=== PATIENT | male | born 1955 | race Caucasian/White ===

== ENCOUNTER 2017-12-15 06:05 | Observation (INO) | payer OTHER ==
[2017-12-14 16:09] VITALS: BP 140/67
[2017-12-14 16:12] LABS: HEMATOCRIT 40.3 % (42-54); MEAN CORPUSCULAR HEMOGLOBIN 31.2 pg (27.0-33.0); MEAN CORPUSCULAR HGB CONC 34.2 g/dL (32.0-36.0); MEAN CORPUSCULAR VOLUME 91.2 fL (79-99); PLATELET COUNT (AUTO) 224 K/uL (130-400); RED BLOOD CELL COUNT(AUTO) 4.42 MIL/uL (4.50-6.20); RED CELL DISTRIBUTION WIDTH 13.8 % (11.0-15.5); WHITE BLOOD COUNT (AUTO) 7.9 K/uL (4.8-10.8)
[2017-12-14 16:24] LABS: CREATININE 1.3 mg/dL (0.5-1.5); INR 0.9 (0.85-1.15); PARTIAL THROMBOPLASTIN TIME 26.7 SEC (26.3-35.5); POTASSIUM 5.5 mmol/L (3.5-5.1); PROTHROMBIN TIME 9.5 SEC (9.6-11.6)
[2017-12-14 16:47] LABS: APPEARANCE,URINE Clear (CLEAR); BILIRUBIN,URINE Negative (NEGATIVE); COLOR,URINE Yellow (YELLOW); GLUCOSE, URINE (UA) 500 mg/dL (NEGATIVE); KETONES,URINE Trace mg/dL (NEGATIVE); LEUKOCYTE ESTERASE ,URINE Trace (NEGATIVE); NITRATE,URINE Negative (NEGATIVE); OCCULT BLOOD,URINE Nonhemolyzed Trace (NEGATIVE); PROTEIN,URINE Negative (NEGATIVE)
[2017-12-14 17:14] LABS: BACTERIA,URINE Few /HPF (None Seen); MUCUS,URINE Few LPF (None Seen); SQUAMOUS EPITHELIAL CELL,UR 0-2 /HPF (0-2); WBC,URINE 0-1 /HPF (0-1)
[~2017-12-15] VITALS: Ht 181.6 cm; Wt 109.8 kg
[2017-12-15] VITALS (23 sets, daily range): BP systolic 100–179; BP diastolic 20–90
[~2017-12-15 06:05] MED LIST: CLON1TAB12 PO; INSREG SQ; LACTATED RINGERS 1000ML 1,000 ML IV PRN; METF-446 PO
[2017-12-15] MEDS ORDERED: SODIUM CHLORIDE 0.9% 1000ML 1,000 ML IV ONE (06:53)
[2017-12-15] MEDS: CEFAZOLIN SODIUM 1 GM VIAL IVP PRN ×2 (07:34→12:30)
[2017-12-15] MEDS ORDERED: FERR325T22 PO (10:20)
[2017-12-15] MEDS ORDERED: METF-446 PO (10:20)
[2017-12-15] MEDS ORDERED: CYAN50TA2 PO (10:20)
[2017-12-15] MEDS ORDERED: ATOR20TA65 PO (10:20)
[2017-12-15] MEDS ORDERED: PROPRANOLOL HCL PO (10:20)
[2017-12-15] MEDS ORDERED: INSLAN SQ (10:20)
[2017-12-15] MEDS ORDERED: CLOP75TA32 PO (10:20)
[2017-12-15] MEDS ORDERED: TAMS0.4C32 PO (10:20)
[2017-12-15] MEDS ORDERED: AMLO5TAB7 PO (10:20)
[2017-12-15] MEDS ORDERED: SERT50TA12 PO (10:20)
[2017-12-15] MEDS ORDERED: LISI10TA7 PO (10:20)
[2017-12-15] MEDS ORDERED: LIDOCAINE PF 2% 5ML ABBOJECT ONE (10:40)
[2017-12-15] MEDS ORDERED: MIDAZOLAM HCL 1 MG/ML 2ML VIAL ONE (10:41)
[2017-12-15] MEDS ORDERED: PROPOFOL 10 MG/ML 20ML VIAL IV ONE ×2 (10:42→11:42)
[2017-12-15] MEDS ORDERED: ROCURONIUM 10MG/1ML SYR 10 MG/ML ML ONE ×2 (10:42→12:21)
[2017-12-15] MEDS ORDERED: FENTANYL CITRATE PF 50 MCG/1 ML 2ML VIAL ONE ×2 (10:50→12:18)
[2017-12-15] MEDS ORDERED: IPRATROPIUM/ALBUTEROL SULFATE 3 ML SOLUTION IH ONE (13:36)
[2017-12-15] MEDS ORDERED: LACTATED RINGERS 1000ML 1,000 ML IV ONE (15:36)
[2017-12-15] MEDS ORDERED: CLON2TAB11 PO (16:09)
[2017-12-15] MEDS ORDERED: DEXTROSE 50%-WATER 50 ML DISP.SYRIN IV PRN (17:45)
[2017-12-15] MEDS ORDERED: GLUCAGON 1MG KIT 1 MG ML IM PRN (17:45)
[2017-12-15] MEDS ORDERED: ACETAMINOPHEN-CODEINE 300/30MG TAB PO PRN (18:00)
[2017-12-15] MEDS ORDERED: OXYBUTYNIN CHLORIDE 5 MG TABLET PO PRN (18:00)
[2017-12-15] MEDS ORDERED: ONDANSETRON HCL 4 MG/2 ML VIAL IVP PRN (18:00)
[2017-12-15] MEDS ORDERED: MEPERIDINE-PF 75 MG/ML SYG IM PRN (18:00)
[2017-12-15] MEDS ORDERED: ACETAMINOPHEN 325 MG TAB PO PRN (18:00)
[2017-12-15] MEDS: LACTATED RINGERS 1000ML 1,000 ML IV SCH (18:26)
[2017-12-15] MEDS: CEFAZOLIN SODIUM 1 GM VIAL IVP SCH (18:26)
[2017-12-15] MEDS ORDERED: CLOPIDOGREL BISULFATE 75 MG TAB PO SCH (21:00)
[2017-12-15] MEDS ORDERED: ATORVASTATIN CALCIUM 20 MG TABLET PO SCH (21:00)
[2017-12-15] MEDS: CLONAZEPAM 2 MG TABLET PO SCH (21:19)
[2017-12-15] MEDS: AMLODIPINE BESYLATE 5 MG TAB PO SCH (21:19)
[2017-12-15] MEDS: METFORMIN HCL 500 MG TABLET PO SCH (21:19)
[2017-12-15] MEDS ORDERED: PROP120C2 PO (21:23)
[2017-12-15] MEDS: INSULIN GLARGINE 100 UNITS/ML 10 ML VIAL SQ SCH (21:26)
[2017-12-15] MEDS: INSULIN HUMULIN R 100 UNIT/ML 3ML SQ SCH (21:27)
[2017-12-16] MEDS: CEFAZOLIN SODIUM 1 GM VIAL IVP SCH ×3 (02:19→18:00)
[2017-12-16 03:28] VITALS: BP 179/72
[2017-12-16] MEDS: LACTATED RINGERS 1000ML 1,000 ML IV SCH (03:29)
[2017-12-16 04:54] LABS: HEMATOCRIT 38.2 % (42-54); MEAN CORPUSCULAR HEMOGLOBIN 31.7 pg (27.0-33.0); MEAN CORPUSCULAR HGB CONC 34.9 g/dL (32.0-36.0); MEAN CORPUSCULAR VOLUME 90.8 fL (79-99); PLATELET COUNT (AUTO) 209 K/uL (130-400); RED BLOOD CELL COUNT(AUTO) 4.21 MIL/uL (4.50-6.20); RED CELL DISTRIBUTION WIDTH 14.2 % (11.0-15.5); WHITE BLOOD COUNT (AUTO) 9.5 K/uL (4.8-10.8)
[2017-12-16 05:03] LABS: CREATININE 1.2 mg/dL (0.5-1.5); POTASSIUM 4.6 mmol/L (3.5-5.1)
[2017-12-16] MEDS: INSULIN HUMULIN R 100 UNIT/ML 3ML SQ SCH ×3 (06:32→16:30)
[2017-12-16 08:00] VITALS: BP 148/69
[2017-12-16] MEDS ORDERED: FERROUS SULFATE 325 MG TABLET.DR PO SCH (09:00)
[2017-12-16] MEDS ORDERED: LISINOPRIL 10 MG TABLET PO SCH (09:00)
[2017-12-16] MEDS ORDERED: PROPRANOLOL HCL 120 MG PO SCH (09:00)
[2017-12-16] MEDS ORDERED: TAMSULOSIN HCL 0.4 MG CAP.ER.24H PO SCH (09:00)
[2017-12-16] MEDS ORDERED: SERTRALINE HCL 50 MG TABLET PO SCH (09:00)
[2017-12-16] MEDS: METFORMIN HCL 500 MG TABLET PO SCH (10:31)
[2017-12-16] MEDS: AMLODIPINE BESYLATE 5 MG TAB PO SCH (10:31)
[2017-12-16] MEDS: CLONAZEPAM 2 MG TABLET PO SCH (10:31)
[2017-12-16] MEDS: INSULIN GLARGINE 100 UNITS/ML 10 ML VIAL SQ SCH (10:49)
[2017-12-16 11:00] VITALS: BP 159/81
[2017-12-16 16:00] VITALS: BP 146/76
== END 2017-12-16 19:16 | disposition home or self-care (01) ==
LOC: SUH 06:05 → DAH 06:05 → SUH 06:06 → 4CH 06:06
PROVIDERS: ADMIT Urology; ATTEND Urology
DX: N32.89 Other specified disorders of bladder (principal); E11.9 Type 2 diabetes mellitus without complications; E78.5 Hyperlipidemia, unspecified
CPT/HCPCS: 36415 ×2; 50955; 71046; 80048 ×2; 81001; 82948 ×8; 85027 ×2; 85610; 85730; 87088; 88305; 93005; 94640; 96372 ×2; 96374; 96376; A4354; A4358; A4600; A5113; C1758; C1769 ×2; G0378 ×37; J0690 ×5; J1815 ×3; J2001; J2250; J2704 ×2; J3010 ×2; J7030; J7120 ×2

== ENCOUNTER 2019-05-25 15:06 | Inpatient (IN) | payer OTHER ==
[~2019-05-25] VITALS: Ht 180.3 cm; Wt 114.3 kg
[~2019-05-25 15:06] MED LIST changes: +AMLO-257 PO; +ATOR20TA65 PO; -CLON1TAB12 PO; +CLON2TAB11 PO; +CLOP75TA32 PO; +CYAN50TA2 PO; +ETOMIDATE 2 MG/ML 10 ML VIAL IVP ONE; +FERR325T22 PO; +INSLAN SQ; -LACTATED RINGERS 1000ML 1,000 ML IV PRN; +LISI10TA7 PO; +PROP120C2 PO; +PROPRANOLOL HCL PO; +SERT50TA12 PO; +SUCCINYLCHOLINE CHLORIDE 20 MG/ML 10 ML VIAL IVP ONE; +TAMS0.4C32 PO
[2019-05-25] MEDS ORDERED: ACETAMINOPHEN EXTRA STRENGTH 500 MG TABLET ONE (15:23)
[2019-05-25 15:48] LABS: BASOPHILS % (AUTO) 0.3 % (0.0-5.0); EOSINOPHILS % (AUTO) 0.7 % (0.0-8.0); HEMATOCRIT 31.8 % (42-54); LYMPHOCYTES % (AUTO) 5.4 % (21.0-51.0); MEAN CORPUSCULAR HEMOGLOBIN 28.6 pg (27.0-33.0); MEAN CORPUSCULAR HGB CONC 32.7 g/dL (32.0-36.0); MEAN CORPUSCULAR VOLUME 87.4 fL (79-99); MONOCYTES % (AUTO) 7.5 % (3.0-13.0); NEUTROPHILS % (AUTO) 85.5 % (40.0-77.0); PLATELET COUNT (AUTO) 232 K/uL (130-400); RED BLOOD CELL COUNT(AUTO) 3.64 MIL/uL (4.50-6.20); RED CELL DISTRIBUTION WIDTH 13.7 % (11.0-15.5); WHITE BLOOD COUNT (AUTO) 15.5 K/uL (4.8-10.8)
[2019-05-25 16:04] LABS: CREATININE 1.8 mg/dL (0.5-1.5); POTASSIUM 4.9 mmol/L (3.5-5.1)
[2019-05-25] MEDS ORDERED: ZOSYN 3.375GM+NS 50ML 50 ML IV ONE (16:46)
[2019-05-25] MEDS ORDERED: VANCOMYCIN 2 GM in SODIUM CHLORIDE 0.9% 500ML 500 ML IV ONE (17:00)
[2019-05-25] MEDS ORDERED: VANCOMYCIN PROTOCOL PER PHARMACY IV SCH (17:30)
[2019-05-25] MEDS ORDERED: SODIUM CHLORIDE 0.9% 1000ML 1,000 ML IV SCH (17:32)
[2019-05-25] MEDS ORDERED: NITROGLYCERIN 0.4 MG SL TAB SL PRN (17:45)
[2019-05-25] MEDS ORDERED: LACTULOSE 20 GM/30 ML UDCUP PO PRN (17:45)
[2019-05-25] MEDS ORDERED: ONDANSETRON HCL 4 MG/2 ML VIAL IV PRN (17:45)
[2019-05-25] MEDS ORDERED: ALBUTEROL SULFATE 0.042% 1.25 MG/3 ML INH IH SCH (18:00)
[2019-05-25] MEDS ORDERED: CEFEPIME HCL 1 GM VIAL IVP SCH (18:30)
[2019-05-25 18:48] LABS: ABG BASE EXCESS -5.6 mmol/L (-2.0-3.0); ABG OXYGEN SATURATION 98.5 % (95.0-99.0); ABG PCO2 40 mmHg (35-48)
[2019-05-25] MEDS ORDERED: ALBUTEROL INHALER 90MCG/INH IH ONE (18:49)
[2019-05-25 20:46] LABS: ALBUMIN 2.3 g/dL (3.5-5.0); BILIRUBIN,DIRECT 0.1 mg/dL (0.0-0.3); BILIRUBIN,TOTAL 0.4 mg/dL (0.2-1.0); TOTAL PROTEIN, SERUM 7.1 g/dL (6.0-8.3)
[2019-05-25] MEDS: INSULIN HUMULIN R 100 UNIT/ML 3ML SQ SCH (21:00)
[2019-05-25 21:12] LABS: MAGNESIUM 2.2 mg/dL (1.80-2.40); PHOSPHORUS 3.5 mg/dL (2.5-4.9)
[2019-05-25] MEDS ORDERED: FUROSEMIDE 10 MG/ML 4ML VIAL ONE (21:50)
[2019-05-25] MEDS ORDERED: CEFEPIME HCL 1 GM VIAL ONE (21:50)
[2019-05-25] MEDS: CEFEPIME HCL 1 GM VIAL IVP SCH (22:00)
[2019-05-25 22:21] LABS: APPEARANCE,URINE CLOUDY (CLEAR); BILIRUBIN,URINE NEGATIVE (NEGATIVE); COLOR,URINE YELLOW (YELLOW); GLUCOSE, URINE (UA) NEGATIVE (NEGATIVE); KETONES,URINE NEGATIVE (NEGATIVE); LEUKOCYTE ESTERASE ,URINE MODERATE (NEGATIVE); NITRATE,URINE NEGATIVE (NEGATIVE); OCCULT BLOOD,URINE MODERATE (NEGATIVE); PH,URINE 5.5 (5.0-8.0); PROTEIN,URINE 30 mg/dL (NEGATIVE); UROBILINOGEN,URINE 0.2 mg/dL (0.2-1.0)
[2019-05-25 22:32] LABS: BACTERIA,URINE Few /HPF (None Seen); SQUAMOUS EPITHELIAL CELL,UR Rare /HPF (0-2); WBC,URINE 51-100 /HPF (0-1)
[2019-05-26 00:39] VITALS: BP 112/65
[2019-05-26] MEDS: ALBUTEROL INHALER 90MCG/INH IH SCH ×2 (02:00→06:00)
[2019-05-26 03:36] LABS: ABG HCO3 18.8 mmol/L (21.0-28.0); ABG OXYGEN SATURATION 94.2 % (95.0-99.0); ABG PCO2 35 mmHg (35-48)
[2019-05-26 03:56] VITALS: BP 125/56
[2019-05-26 04:57] LABS: BASOPHILS % (AUTO) 0.5 % (0.0-5.0); HEMATOCRIT 30.6 % (42-54); LYMPHOCYTES % (AUTO) 7.9 % (21.0-51.0); MEAN CORPUSCULAR HEMOGLOBIN 28.6 pg (27.0-33.0); MEAN CORPUSCULAR VOLUME 89.2 fL (79-99); MONOCYTES % (AUTO) 7.3 % (3.0-13.0); NEUTROPHILS % (AUTO) 81.8 % (40.0-77.0); PLATELET COUNT (AUTO) 214 K/uL (130-400); RED BLOOD CELL COUNT(AUTO) 3.43 MIL/uL (4.50-6.20); RED CELL DISTRIBUTION WIDTH 13.7 % (11.0-15.5); WHITE BLOOD COUNT (AUTO) 11.5 K/uL (4.8-10.8)
[2019-05-26 05:30] LABS: ALBUMIN 2.3 g/dL (3.5-5.0); BILIRUBIN,TOTAL 0.5 mg/dL (0.2-1.0); CREATININE 1.9 mg/dL (0.5-1.5); POTASSIUM 4.5 mmol/L (3.5-5.1); TOTAL PROTEIN, SERUM 7.2 g/dL (6.0-8.3)
[2019-05-26 05:35] LABS: HEMOGLOBIN A1C 6.5 % (4.0-6.0)
[2019-05-26 05:43] LABS: B-TYPE NATRIURETIC PEPTIDE 111 pg/mL (0-100)
[2019-05-26] MEDS: INSULIN HUMULIN R 100 UNIT/ML 3ML SQ SCH ×4 (05:57→20:02)
[2019-05-26 06:08] LABS: CRP QUANTITATIVE 183.2 mg/L (0.00-9.0)
[2019-05-26] MEDS: CEFEPIME HCL 1 GM VIAL IVP SCH ×3 (06:17→19:35)
[2019-05-26 07:00] VITALS: BP 121/55
[2019-05-26] MEDS: FAMOTIDINE 20MG TAB 20 MG TAB PO SCH (08:09)
[2019-05-26] MEDS: ENOXAPARIN SODIUM 30 MG/0.3 ML SQ SCH (08:10)
[2019-05-26] MEDS ORDERED: VANCOMYCIN 1.5 GM in SODIUM CHLORIDE 0.9% 250 ML IV SCH ×2 (09:00→11:00)
--- NOTE | 2019-05-26 10:57 | NUR ---
GLUCOSE AC/HS, GLUCOSE 287.
[2019-05-26 11:00] VITALS: BP 161/68
[2019-05-26] MEDS ORDERED: COMPOUND IV REFRIGERATED 1 EACH IVSOLN MISC PRN (11:45)
--- NOTE | 2019-05-26 12:00 | NUR ---
PODIATRY CONSULT DR HORTA NOTIFIED OF CONSULT. CONSULT INFO GIVEN. NEW ORDERS RECEIVED & ENTERED.
[2019-05-26] MEDS ORDERED: TAMSULOSIN HCL 0.4 MG CAP.ER.24H PO SCH (14:30)
[2019-05-26] MEDS ORDERED: TAMSULOSIN HCL 0.4 MG CAP.ER.24H ONE (14:37)
[2019-05-26 15:00] VITALS: BP 148/74
[2019-05-26] MEDS ORDERED: ALOG25TA2 PO (15:33)
[2019-05-26] MEDS ORDERED: LISI-613 PO (15:33)
--- NOTE | 2019-05-26 16:21 | NUR ---
PULMONOLOGY CONSULT DR REED TO SEE PT. PT CURRENTLY HAVING MRI OF LT FOOT. PT TO BE SEEN TOMORROW, PER DR REED.
--- NOTE | 2019-05-26 16:43 | NUR ---
SW attempted to reach pt to complete IA, no answer in room. PARI called Katie Clark [phone], listed on face sheet, no answer, no voice mail. Cm to f/u
--- NOTE | 2019-05-26 17:22 | NUR ---
MD VISIT PT BACK FROM MRI OF LT FOOT. DR REED IN TO SEE PT.
[2019-05-26 19:10] VITALS: BP 141/60
[2019-05-26] MEDS ORDERED: LORAZEPAM 2 MG/ML 1 ML VIAL ONE (22:22)
[2019-05-26] MEDS ORDERED: FUROSEMIDE 10 MG/ML 4ML VIAL ONE (22:30)
[2019-05-26] MEDS ORDERED: LORAZEPAM 2 MG/ML 1 ML VIAL IVP ONE (22:30)
[2019-05-26] MEDS: FUROSEMIDE 10 MG/ML 4ML VIAL IV SCH (22:45)
[2019-05-26 22:49] LABS: ABG BASE EXCESS -7.2 mmol/L (-2.0-3.0); ABG HCO3 20.8 mmol/L (21.0-28.0); ABG OXYGEN SATURATION 91.7 % (95.0-99.0); ABG PCO2 53 mmHg (35-48)
--- NOTE | 2019-05-26 23:06 | NUR ---
respiratory distress patient continued to pull off non-rbr current sat 80s gowned up multiple times to reapply mask and patient oxygen sat would recover up to 93% this last time, patient did not recover, was diaphoretic and reported "sob", lethargic exaggerated abdominal breathing from baseline rt called patient placed on bipap aj palliative senior np paged and at bedside orders for iv lasix x1 and iv ativan x [address] jeet felix - DRE-[facility]UN[facility] spoke with dr marcano and updated him on patient status dr jeet felix and given results of abg ordered to continue to monitor patient saturation throughout the night
[2019-05-26 23:20] LABS: CREATININE 1.6 mg/dL (0.5-1.5)
[2019-05-27] VITALS (18 sets, daily range): BP systolic 97–219; BP diastolic 38–118
[2019-05-27] MEDS ORDERED: IPRATROPIUM 0.5 MG/2.5 ML INH IH SCH
[2019-05-27] MEDS: ACETAMINOPHEN 325 MG TAB PO PRN ×2 (01:21→15:44)
[2019-05-27 04:31] LABS: ABG BASE EXCESS -3.8 mmol/L (-2.0-3.0); ABG HCO3 22.2 mmol/L (21.0-28.0); ABG PCO2 44 mmHg (35-48)
[2019-05-27 05:03] LABS: BASOPHILS % (AUTO) 0.5 % (0.0-5.0); EOSINOPHILS % (AUTO) 0.8 % (0.0-8.0); HEMATOCRIT 32.7 % (42-54); LYMPHOCYTES % (AUTO) 7.3 % (21.0-51.0); MEAN CORPUSCULAR HEMOGLOBIN 28.1 pg (27.0-33.0); MEAN CORPUSCULAR HGB CONC 31.2 g/dL (32.0-36.0); MEAN CORPUSCULAR VOLUME 90.1 fL (79-99); MONOCYTES % (AUTO) 6.8 % (3.0-13.0); NEUTROPHILS % (AUTO) 83.8 % (40.0-77.0); PLATELET COUNT (AUTO) 289 K/uL (130-400); RED BLOOD CELL COUNT(AUTO) 3.63 MIL/uL (4.50-6.20); RED CELL DISTRIBUTION WIDTH 13.8 % (11.0-15.5); WHITE BLOOD COUNT (AUTO) 11.8 K/uL (4.8-10.8)
[2019-05-27 05:22] LABS: ALBUMIN 2.4 g/dL (3.5-5.0); BILIRUBIN,TOTAL 0.5 mg/dL (0.2-1.0); CREATININE 1.7 mg/dL (0.5-1.5); MAGNESIUM 1.8 mg/dL (1.80-2.40); PHOSPHORUS 4.3 mg/dL (2.5-4.9); POTASSIUM 4.4 mmol/L (3.5-5.1); TOTAL PROTEIN, SERUM 7.8 g/dL (6.0-8.3)
[2019-05-27 05:43] LABS: CRP QUANTITATIVE 233.9 mg/L (0.00-9.0)
[2019-05-27] MEDS ORDERED: BUDESONIDE 0.5 MG/2 ML INH IH SCH (06:00)
[2019-05-27] MEDS: CEFEPIME HCL 1 GM VIAL IVP SCH ×3 (06:45→22:18)
[2019-05-27] MEDS: INSULIN HUMULIN R 100 UNIT/ML 3ML SQ SCH ×4 (06:46→23:33)
[2019-05-27 07:26] LABS: ERYTHROCYTE SEDIMENTATION RATE 120 MM/HR (0-20)
[2019-05-27] MEDS: FAMOTIDINE 20MG TAB 20 MG TAB PO SCH (08:23)
[2019-05-27] MEDS: ENOXAPARIN SODIUM 30 MG/0.3 ML SQ SCH (08:23)
[2019-05-27] MEDS: VANCOMYCIN 1GM+NS 250ML 250 ML IV SCH ×2 (10:40→20:14)
--- NOTE | 2019-05-27 13:56 | NUR ---
DC PLAN PATIENT IN [facility]. CALLED PERSON TO NOTIFY AVE - PATIENT LIVES WITH ALONE. PROVIDER 33 1/2 HOURS. USES A WHEEL CHAIR. SAID WILL HAND RIGGER PATIENT WHEN PATIENT IS READY TO DC HOME. Addendum: 05/27/19 at 1359 by SANDY GONZALES RN CM Amended: Links added.
[2019-05-27] MEDS: TAMSULOSIN HCL 0.4 MG CAP.ER.24H PO SCH (20:14)
[2019-05-27] MEDS: Vitamin B Complex/Vit C/Folic Acid PO SCH (20:14)
--- NOTE | 2019-05-27 20:30 | NUR ---
Intubation Change in status: observed Patient in respiratory distress, diaphoretic, tachypneic, gasping for air, abdominal grunting patient was non rebreather oxygen saturations on 70-80's, Heart rate in 120's. Hospitalist and Critical care made aware via telephone and recommended intubation. Patient intubated by ER physician at 2100 hrs, patient stable, improved breathing, ventilated O2 saturations 94%, FIO2 100%, BP 132/50, HR 86, RR 22. Carried out new orders received by critical care and hospitalist.
[2019-05-27] MEDS ORDERED: LABETALOL HCL 5 MG/ML 20ML VIAL IV ONE (20:59)
[2019-05-27] MEDS ORDERED: PROPOFOL 1000 MG/100 ML 100 ML IV ONE (21:08)
[2019-05-27] MEDS ORDERED: MIDAZOLAM HCL 1 MG/ML 2ML VIAL ONE (21:11)
[2019-05-27] MEDS ORDERED: FENTANYL CITRATE PF 50 MCG/1 ML 5ML AMP IV ONE (21:12)
[2019-05-27 21:29] LABS: ABG BASE EXCESS -3.8 mmol/L (-2.0-3.0); ABG HCO3 22.4 mmol/L (21.0-28.0); ABG OXYGEN SATURATION 91.8 % (95.0-99.0); ABG PCO2 45 mmHg (35-48)
[2019-05-27] MEDS ORDERED: FENTANYL 1000MCG+NS 100ML 100 ML ONE (21:38)
[2019-05-27] MEDS: ALBUTEROL INHALER 90MCG/INH IH SCH ×3 (22:00→23:33)
[2019-05-27] MEDS ORDERED: FENTANYL CITRATE PF 50 MCG/1 ML 2ML VIAL IVP ONE (22:15)
[2019-05-27] MEDS: ETOMIDATE 2 MG/ML 10 ML VIAL IVP SCH (22:15)
[2019-05-27] MEDS ORDERED: MIDAZOLAM HCL 1 MG/ML 5ML VIAL IVP ONE (22:15)
[2019-05-27] MEDS ORDERED: FENTANYL CITRATE PF 0.05 MG/ML 1,000 MCG in SODIUM CHLORIDE 0.9% 100 ML IVPB SCH (22:15)
[2019-05-27] MEDS: SUCCINYLCHOLINE 200MG/10ML SYR IVP SCH (22:15)
[2019-05-27] MEDS: LABETALOL HCL 5 MG/ML 20ML VIAL IV SCH (22:15)
[2019-05-27] MEDS ORDERED: PROPOFOL 1000 MG/100 ML IV PRN (22:15)
[2019-05-27] MEDS ORDERED: FUROSEMIDE 10 MG/ML 2ML VIAL IV SCH (22:30)
[2019-05-27] MEDS: FUROSEMIDE 10 MG/ML 4ML VIAL IV SCH (22:45)
[2019-05-28] VITALS (41 sets, daily range): BP systolic 90–144; BP diastolic 27–74
[2019-05-28] MEDS: NOREPINEPHRINE 4MG/NS 250ML 250 ML IV SCH (01:52)
[2019-05-28] MEDS: PROPOFOL 1000 MG/100 ML 100 ML IV SCH ×4 (01:52→21:00)
[2019-05-28] MEDS: CEFEPIME HCL 1 GM VIAL IVP SCH ×3 (06:03→21:02)
[2019-05-28 06:16] LABS: HEMATOCRIT 30.9 % (42-54); MEAN CORPUSCULAR HEMOGLOBIN 28.5 pg (27.0-33.0); MEAN CORPUSCULAR HGB CONC 31.7 g/dL (32.0-36.0); MEAN CORPUSCULAR VOLUME 89.8 fL (79-99); PLATELET COUNT (AUTO) 269 K/uL (130-400); RED BLOOD CELL COUNT(AUTO) 3.44 MIL/uL (4.50-6.20); RED CELL DISTRIBUTION WIDTH 13.8 % (11.0-15.5); WHITE BLOOD COUNT (AUTO) 11.7 K/uL (4.8-10.8)
[2019-05-28 06:42] LABS: ALBUMIN 2.1 g/dL (3.5-5.0); BILIRUBIN,TOTAL 0.5 mg/dL (0.2-1.0); CREATININE 1.6 mg/dL (0.5-1.5); MAGNESIUM 1.6 mg/dL (1.80-2.40); PHOSPHORUS 3.4 mg/dL (2.5-4.9); POTASSIUM 4.2 mmol/L (3.5-5.1); THYROID STIMULATING HORMONE 0.33 uIU/mL (0.36-3.74); TOTAL PROTEIN, SERUM 7.3 g/dL (6.0-8.3); URIC ACID 7.8 mg/dL (2.6-7.2)
[2019-05-28] MEDS: INSULIN HUMULIN R 100 UNIT/ML 3ML SQ SCH ×3 (06:47→17:44)
[2019-05-28] MEDS: VANCOMYCIN 1GM+NS 250ML 250 ML IV SCH ×2 (07:49→21:00)
[2019-05-28] MEDS: ENOXAPARIN SODIUM 30 MG/0.3 ML SQ SCH (07:50)
[2019-05-28] MEDS: FAMOTIDINE 20MG TAB 20 MG TAB PO SCH (07:50)
[2019-05-28 07:51] LABS: EOSINOPHILS % (MANUAL) 1 % (1-6); LYMPHOCYTES % (MANUAL) 7 % (22-44); MONOCYTES % (MANUAL) 5 % (2-9); SEGMENTED NEUTROPHILS % 87 % (40-70)
[2019-05-28 07:53] LABS: MAN.DIFF COMMENT-IMPRESSION MANUAL DIFFERENTIAL; PLATELET MORPHOLOGY COMMENT ADEQUATE
[2019-05-28] MEDS ORDERED: APAP/CODEINE 120/12MG 5ML PO PRN (08:00)
[2019-05-28] MEDS: HYDROCODONE/ACETAMINOPHEN 5/325 MG TAB PO PRN (09:15)
[2019-05-28] MEDS ORDERED: MAGNESIUM 2GM PREMIX 50ML 50 ML IV ONE (09:54)
[2019-05-28] MEDS ORDERED: MAGNESIUM 2GM PREMIX 50ML 50 ML IV PRN (10:00)
[2019-05-28] MEDS ORDERED: FENTANYL 1000MCG+NS 100ML 100 ML ONE (11:41)
--- NOTE | 2019-05-28 20:00 | NUR ---
ASSESSMENT PT INTUBATED AND SEDATED, OPENS EYES WITH VERBAL STIMULI, NODS HEAD YES/NO TO SIMPLE QUESTIONS. ASSESSMENT COMPLETED, SEE FLOW SHEET.
[2019-05-28] MEDS: Vitamin B Complex/Vit C/Folic Acid PO SCH (20:57)
[2019-05-28] MEDS: ACETAMINOPHEN 325 MG TAB PO PRN (20:59)
[2019-05-28] MEDS: TAMSULOSIN HCL 0.4 MG CAP.ER.24H PO SCH (21:00)
[2019-05-28] MEDS: LABETALOL HCL 5 MG/ML 20ML VIAL IV SCH (22:15)
[2019-05-28] MEDS: ETOMIDATE 2 MG/ML 10 ML VIAL IVP SCH (22:15)
[2019-05-28] MEDS: SUCCINYLCHOLINE 200MG/10ML SYR IVP SCH (22:15)
[2019-05-28] MEDS: FUROSEMIDE 10 MG/ML 4ML VIAL IV SCH (22:45)
[2019-05-29] VITALS (30 sets, daily range): BP systolic 107–164; BP diastolic 30–79
[2019-05-29] MEDS: INSULIN HUMULIN R 100 UNIT/ML 3ML SQ SCH ×4 (00:34→21:01)
[2019-05-29] MEDS: PROPOFOL 1000 MG/100 ML 100 ML IV SCH ×4 (01:04→23:00)
[2019-05-29] MEDS ORDERED: ETOMIDATE 2 MG/ML 10 ML VIAL IVP SCH (01:30)
--- NOTE | 2019-05-29 02:00 | NUR ---
SELF-EXTUBATION/RE-INTUBATION PT SELF EXTUBATED AT APPROXIMATELY 0115. RESP CALLED. DR REED CALLED AND MADE AWARE PT SELF-EXTUBATED, RECEIVED ORDERS TO HAVE E.D. M.D RE-INTUBATE PT. ANTONIO BALLESTEROS CALLED AT APPROXIMATED 0122. DR LOW HERE PT RE-INTUBATED ON FIRST ATTEMPT. ETT 8 SECURED. VENT SETTINGS: AC/12/100%/550 PEEP 7. OGT ALSO REMOVED WHEN PT SELF EXTUBATED. PCXR CONFIRMED ETT PLACEMENT, BILATERAL MITTENS IN PLACE. PT SEDATED.
--- NOTE | 2019-05-29 02:53 | NUR ---
Patient self extubated himself Sat.70% at arrival Uma Holder was called Dr. Bustamante reintubated at first attempt. Addendum: 05/29/19 at 0259 by COSTA PATTON RT Amended: Links added.
[2019-05-29 05:04] LABS: BASOPHILS % (AUTO) 0.4 % (0.0-5.0); EOSINOPHILS % (AUTO) 2.6 % (0.0-8.0); HEMATOCRIT 31.1 % (42-54); LYMPHOCYTES % (AUTO) 8.8 % (21.0-51.0); MEAN CORPUSCULAR HGB CONC 31.8 g/dL (32.0-36.0); MEAN CORPUSCULAR VOLUME 88.1 fL (79-99); MONOCYTES % (AUTO) 7.4 % (3.0-13.0); NEUTROPHILS % (AUTO) 80.1 % (40.0-77.0); PLATELET COUNT (AUTO) 295 K/uL (130-400); RED BLOOD CELL COUNT(AUTO) 3.53 MIL/uL (4.50-6.20); RED CELL DISTRIBUTION WIDTH 13.7 % (11.0-15.5); WHITE BLOOD COUNT (AUTO) 12.1 K/uL (4.8-10.8)
[2019-05-29 05:15] LABS: CREATININE 1.3 mg/dL (0.5-1.5); MAGNESIUM 1.9 mg/dL (1.80-2.40); POTASSIUM 3.8 mmol/L (3.5-5.1)
[2019-05-29] MEDS: CEFEPIME HCL 1 GM VIAL IVP SCH ×3 (05:53→22:59)
[2019-05-29] MEDS: NOREPINEPHRINE 4MG/NS 250ML 250 ML IV SCH (06:54)
[2019-05-29] MEDS ORDERED: FENTANYL 1000MCG+NS 100ML 100 ML ONE ×2 (10:04→15:09)
[2019-05-29] MEDS: VANCOMYCIN 1GM+NS 250ML 250 ML IV SCH (10:16)
[2019-05-29] MEDS: FAMOTIDINE 20MG TAB 20 MG TAB PO SCH (10:16)
[2019-05-29] MEDS: ENOXAPARIN SODIUM 30 MG/0.3 ML SQ SCH (10:17)
[2019-05-29] MEDS ORDERED: COMPOUND IV REFRIGERATED 1 EACH IVSOLN MISC PRN (10:45)
[2019-05-29] MEDS: HYDROCODONE/ACETAMINOPHEN 5/325 MG TAB PO PRN (15:58)
[2019-05-29] MEDS: FENTANYL 1000MCG+NS 100ML 100 ML IV SCH (19:18)
[2019-05-29] MEDS: VANCOMYCIN 750MG + NS 250 ML IV SCH ×2 (20:35)
[2019-05-29] MEDS: TAMSULOSIN HCL 0.4 MG CAP.ER.24H PO SCH (20:46)
[2019-05-29] MEDS: Vitamin B Complex/Vit C/Folic Acid PO SCH (20:46)
[2019-05-29] MEDS: INSULIN GLARGINE 100 UNITS/ML 10 ML VIAL SQ SCH (21:00)
[2019-05-29] MEDS ORDERED: VANCOMYCIN 750MG + NS 250 ML IV SCH ×2 (21:00)
[2019-05-29] MEDS: ALBUTEROL INHALER 90MCG/INH IH SCH (21:45)
[2019-05-29] MEDS: ACETAMINOPHEN 325 MG TAB PO PRN (23:42)
[2019-05-30] VITALS (24 sets, daily range): BP systolic 107–135; BP diastolic 40–53
[2019-05-30] MEDS: ALBUTEROL INHALER 90MCG/INH IH SCH ×4 (02:05→14:21)
[2019-05-30] MEDS: FENTANYL 1000MCG+NS 100ML 100 ML IV SCH ×4 (02:17→19:22)
[2019-05-30 03:52] LABS: BASOPHILS % (AUTO) 0.7 % (0.0-5.0); EOSINOPHILS % (AUTO) 4.1 % (0.0-8.0); HEMATOCRIT 29.8 % (42-54); LYMPHOCYTES % (AUTO) 13.1 % (21.0-51.0); MEAN CORPUSCULAR HEMOGLOBIN 27.7 pg (27.0-33.0); MEAN CORPUSCULAR HGB CONC 30.5 g/dL (32.0-36.0); MEAN CORPUSCULAR VOLUME 90.6 fL (79-99); MONOCYTES % (AUTO) 8.4 % (3.0-13.0); NEUTROPHILS % (AUTO) 72.9 % (40.0-77.0); PLATELET COUNT (AUTO) 273 K/uL (130-400); RED BLOOD CELL COUNT(AUTO) 3.29 MIL/uL (4.50-6.20); RED CELL DISTRIBUTION WIDTH 14.1 % (11.0-15.5); WHITE BLOOD COUNT (AUTO) 9.7 K/uL (4.8-10.8)
[2019-05-30 04:12] LABS: CREATININE 1.8 mg/dL (0.5-1.5); POTASSIUM 4.2 mmol/L (3.5-5.1)
[2019-05-30] MEDS: INSULIN HUMULIN R 100 UNIT/ML 3ML SQ SCH ×3 (05:42→18:00)
[2019-05-30] MEDS: CEFEPIME HCL 1 GM VIAL IVP SCH (05:43)
[2019-05-30] MEDS: PROPOFOL 1000 MG/100 ML 100 ML IV SCH ×4 (08:00→23:29)
[2019-05-30] MEDS: ACETAMINOPHEN 325 MG TAB PO PRN ×3 (08:48→22:04)
[2019-05-30] MEDS: ENOXAPARIN SODIUM 30 MG/0.3 ML SQ SCH (08:52)
[2019-05-30] MEDS: POLYETHYLENE GLYCOL 3350 17 GM POWD.PACK NG SCH (08:52)
[2019-05-30] MEDS: FAMOTIDINE 20MG TAB 20 MG TAB PO SCH (08:52)
[2019-05-30] MEDS: VANCOMYCIN 750MG + NS 250 ML IV SCH ×4 (09:24→21:54)
[2019-05-30] MEDS: MEROPENEM 1 GM VIAL IVP SCH ×2 (12:15→18:38)
--- NOTE | 2019-05-30 14:34 | NUR ---
[facility] CONSULT PATIENT ASSESSED REQUESTED: PATIENT PRESENTS WITH DTI TO RT BUTTOCK; [facility] RECOMMENDATIONS SUBMITTED. Addendum: 05/30/19 at 1436 by MASOOD MCNAMARA LVN LVN W Amended: Links added.
--- NOTE | 2019-05-30 15:53 | NUR ---
RD NOTIFICATION - Tube Feeding Notification Pt Intubated with sedation. Tube Feeding notification Tube Feeding Recommendation: vital AF 1.2 @55mls/hr (1584 kcal/99gm Pro) Flushes: [id number].Propofol: 475kcal Tube Feeding Order placed in Pt chart, RN notified. Pt with Acute respiratory failure requiring intubation, per EMR. Pt with propofol in place @18mls/hr (475kcal). RD to continue to monitor. Please notify as additional nutrition concerns arise. Thank you. Addendum: 05/30/19 at [address] Amended: Links added.
[2019-05-30] MEDS ORDERED: ALBUTEROL SULFATE/IPRATROPIUM 103/18 MCG/PUFF 14.7 GM INHR IH SCH (16:15)
[2019-05-30] MEDS ORDERED: PHARMACY COMMUNICATION MISC SCH (16:30)
[2019-05-30] MEDS: IPRATROPIUM/ALBUTEROL SULFATE 3 ML SOLUTION IH SCH ×2 (19:58→23:12)
[2019-05-30] MEDS: INSULIN GLARGINE 100 UNITS/ML 10 ML VIAL SQ SCH (21:00)
[2019-05-30] MEDS: TAMSULOSIN HCL 0.4 MG CAP.ER.24H PO SCH (21:00)
[2019-05-30] MEDS: Vitamin B Complex/Vit C/Folic Acid PO SCH (21:00)
[2019-05-31] VITALS (22 sets, daily range): BP systolic 109–168; BP diastolic 42–77
[2019-05-31] MEDS: INSULIN HUMULIN R 100 UNIT/ML 3ML SQ SCH ×4 (00:08→18:41)
[2019-05-31] MEDS: FENTANYL 1000MCG+NS 100ML 100 ML IV SCH ×3 (00:45→21:19)
[2019-05-31] MEDS: MEROPENEM 1 GM VIAL IVP SCH ×3 (03:12→17:48)
[2019-05-31 03:48] LABS: BASOPHILS % (AUTO) 0.5 % (0.0-5.0); EOSINOPHILS % (AUTO) 3.2 % (0.0-8.0); HEMATOCRIT 29.1 % (42-54); LYMPHOCYTES % (AUTO) 8.4 % (21.0-51.0); MEAN CORPUSCULAR HEMOGLOBIN 28.4 pg (27.0-33.0); MEAN CORPUSCULAR HGB CONC 30.9 g/dL (32.0-36.0); MEAN CORPUSCULAR VOLUME 91.8 fL (79-99); MONOCYTES % (AUTO) 7.3 % (3.0-13.0); NEUTROPHILS % (AUTO) 79.5 % (40.0-77.0); PLATELET COUNT (AUTO) 281 K/uL (130-400); RED BLOOD CELL COUNT(AUTO) 3.17 MIL/uL (4.50-6.20); RED CELL DISTRIBUTION WIDTH 14.3 % (11.0-15.5); WHITE BLOOD COUNT (AUTO) 9.9 K/uL (4.8-10.8)
[2019-05-31 04:03] LABS: CREATININE 3.3 mg/dL (0.5-1.5); MAGNESIUM 2.5 mg/dL (1.80-2.40); PHOSPHORUS 6.1 mg/dL (2.5-4.9); POTASSIUM 4.7 mmol/L (3.5-5.1)
[2019-05-31] MEDS: PROPOFOL 1000 MG/100 ML 100 ML IV SCH ×2 (04:34→08:15)
[2019-05-31 05:00] LABS: ABG BASE EXCESS -6.8 mmol/L (-2.0-3.0); ABG HCO3 18.7 mmol/L (21.0-28.0); ABG OXYGEN SATURATION 95.5 % (95.0-99.0); ABG PCO2 38 mmHg (35-48)
[2019-05-31] MEDS: ACETAMINOPHEN 325 MG TAB PO PRN ×2 (07:45→11:48)
[2019-05-31] MEDS: FAMOTIDINE 20MG TAB 20 MG TAB PO SCH (08:14)
[2019-05-31] MEDS: POLYETHYLENE GLYCOL 3350 17 GM POWD.PACK NG SCH (08:14)
[2019-05-31] MEDS: ENOXAPARIN SODIUM 30 MG/0.3 ML SQ SCH (08:15)
[2019-05-31 08:39] LABS: ABG BASE EXCESS -7.2 mmol/L (-2.0-3.0); ABG HCO3 19.1 mmol/L (21.0-28.0); ABG OXYGEN SATURATION 94.8 % (95.0-99.0); ABG PCO2 42 mmHg (35-48)
[2019-05-31] MEDS: IPRATROPIUM/ALBUTEROL SULFATE 3 ML SOLUTION IH SCH ×2 (08:47→12:02)
[2019-05-31] MEDS: VANCOMYCIN 750MG + NS 250 ML IV SCH ×2 (09:00)
[2019-05-31] MEDS: FLUCONAZOLE 200 MG/NS 100 ML 100 ML IV SCH (11:24)
[2019-05-31] MEDS: LINEZOLID 600 MG/ISO-OSM 300 ML IV SCH ×2 (11:24→21:18)
[2019-05-31] MEDS: Vitamin B Complex/Vit C/Folic Acid PO SCH (21:00)
[2019-05-31] MEDS: TAMSULOSIN HCL 0.4 MG CAP.ER.24H PO SCH (21:00)
[2019-05-31] MEDS: INSULIN GLARGINE 100 UNITS/ML 10 ML VIAL SQ SCH (21:24)
[2019-05-31] MEDS ORDERED: SODIUM CHLORIDE 0.9% 500ML 500 ML IV ONE (22:26)
[2019-06-01] VITALS (27 sets, daily range): BP systolic 119–162; BP diastolic 45–84
[2019-06-01] MEDS: MEROPENEM 1 GM VIAL IVP SCH ×3 (03:01→18:43)
[2019-06-01] MEDS: INSULIN HUMULIN R 100 UNIT/ML 3ML SQ SCH ×4 (03:06→18:57)
[2019-06-01 03:53] LABS: ALBUMIN 1.4 g/dL (3.5-5.0); BILIRUBIN,TOTAL 0.4 mg/dL (0.2-1.0); CREATININE 4.3 mg/dL (0.5-1.5); POTASSIUM 5.3 mmol/L (3.5-5.1); TOTAL PROTEIN, SERUM 6.9 g/dL (6.0-8.3)
[2019-06-01 04:23] LABS: % IRON SATURATION 8.6 % (30-44)
[2019-06-01] MEDS: PROPOFOL 1000 MG/100 ML 100 ML IV SCH ×4 (04:43→23:45)
[2019-06-01 08:54] LABS: ABG BASE EXCESS -5.5 mmol/L (-2.0-3.0); ABG OXYGEN SATURATION 98.2 % (95.0-99.0); ABG PCO2 35 mmHg (35-48)
[2019-06-01] MEDS: POLYETHYLENE GLYCOL 3350 17 GM POWD.PACK NG SCH (09:42)
[2019-06-01] MEDS: FAMOTIDINE 20MG TAB 20 MG TAB PO SCH (09:42)
[2019-06-01] MEDS: ENOXAPARIN SODIUM 30 MG/0.3 ML SQ SCH (09:43)
[2019-06-01] MEDS: FLUCONAZOLE 200 MG/NS 100 ML 100 ML IV SCH (09:43)
[2019-06-01] MEDS: LINEZOLID 600 MG/ISO-OSM 300 ML IV SCH ×2 (10:23→22:00)
[2019-06-01] MEDS: ACETAMINOPHEN 325 MG TAB PO PRN ×2 (10:53→23:59)
[2019-06-01] MEDS: INSULIN NPH 100 UNIT/ML 3ML SQ SCH (16:09)
--- NOTE | 2019-06-01 19:23 | NUR ---
DR. ANABEL LITTLE CALLED AND VOICEMAIL LEFT IN REGARDS TO US RESULTS. PENDING CALL BACK.
[2019-06-01] MEDS: FENTANYL 1000MCG+NS 100ML 100 ML IV SCH (20:13)
[2019-06-01] MEDS: TAMSULOSIN HCL 0.4 MG CAP.ER.24H PO SCH (20:19)
[2019-06-01] MEDS: Vitamin B Complex/Vit C/Folic Acid PO SCH (20:29)
[2019-06-01] MEDS ORDERED: INSULIN GLARGINE 100 UNITS/ML 10 ML VIAL SQ SCH (21:00)
--- NOTE | 2019-06-01 21:49 | NUR ---
ULTRASOUND RESULTS OF BUE/BLE REPORTED TO DR LITTLE. NEW ORDER FOR LOVENOX PER DVT PROTOCOL, COVID 19 REPEAT TEST, TRANSFER TO COVID UNIT.
[2019-06-01] MEDS: ENOXAPARIN SODIUM 120 MG/0.8ML SQ SCH (22:20)
--- NOTE | 2019-06-01 23:00 | NUR ---
COVID N/P SWAB COLLECTED AND SENT TO LAB.
--- NOTE | 2019-06-01 23:27 | NUR ---
REPORT GIVEN TO MICHAEL NOEL. PATIENT TRANSFERRED TO COVID [address]LE ORDER.
[2019-06-02] VITALS (54 sets, daily range): BP systolic 126–166; BP diastolic 49–76
[2019-06-02] MEDS ORDERED: PROPOFOL 1000 MG/100 ML IV PRN
[2019-06-02] MEDS: INSULIN HUMULIN R 100 UNIT/ML 3ML SQ SCH ×4 (00:43→18:25)
[2019-06-02] MEDS: MEROPENEM 1 GM VIAL IVP SCH ×3 (03:15→18:26)
[2019-06-02 05:09] LABS: HEMATOCRIT 29.7 % (42-54); MEAN CORPUSCULAR HEMOGLOBIN 28.3 pg (27.0-33.0); MEAN CORPUSCULAR HGB CONC 30.6 g/dL (32.0-36.0); MEAN CORPUSCULAR VOLUME 92.5 fL (79-99); PLATELET COUNT (AUTO) 368 K/uL (130-400); RED BLOOD CELL COUNT(AUTO) 3.21 MIL/uL (4.50-6.20); RED CELL DISTRIBUTION WIDTH 14.6 % (11.0-15.5); WHITE BLOOD COUNT (AUTO) 12.5 K/uL (4.8-10.8)
[2019-06-02] MEDS: PROPOFOL 1000 MG/100 ML 100 ML IV SCH ×3 (05:33→17:11)
[2019-06-02 05:43] LABS: CREATININE 4.9 mg/dL (0.5-1.5); POTASSIUM 5.3 mmol/L (3.5-5.1)
[2019-06-02] MEDS: INSULIN NPH 100 UNIT/ML 3ML SQ SCH ×2 (06:30→18:25)
[2019-06-02 08:30] LABS: MAGNESIUM 2.8 mg/dL (1.80-2.40)
[2019-06-02 08:44] LABS: ABG BASE EXCESS -5.4 mmol/L (-2.0-3.0); ABG OXYGEN SATURATION 97.5 % (95.0-99.0); ABG PCO2 34 mmHg (35-48)
[2019-06-02] MEDS: FAMOTIDINE 20MG TAB 20 MG TAB PO SCH (09:06)
[2019-06-02] MEDS: ACETAMINOPHEN 325 MG TAB PO PRN ×2 (09:06→14:20)
[2019-06-02] MEDS: FLUCONAZOLE 200 MG/NS 100 ML 100 ML IV SCH (09:07)
[2019-06-02] MEDS: POLYETHYLENE GLYCOL 3350 17 GM POWD.PACK NG SCH (09:07)
[2019-06-02] MEDS: LINEZOLID 600 MG/ISO-OSM 300 ML IV SCH ×2 (10:42→21:59)
--- NOTE | 2019-06-02 13:49 | NUR ---
RD FOLLOW UP Pt continues on intubation and sedation. Noted, worsening Renal labs, elevated potassium lab value. Recommend change Tube Feeding to Nepro @ 35ml/hr, Flushes 175mL Q6hrs. Order form Faxed to 2nd Floor, Pod B - RN Notified. Also noted, 2+ edema in lower extremities, per EMR. LBM 4/;Miralax in place. Pt with Left foot ulcer, right buttock DTI. Monitored nutrition labs: BG 376, P 6.0, K 5.3, Cr 4.9, GFR 13, Mg 2.80. RD to continue to monitor. Addendum: 06/02/19 at [address] Amended: Links added.
--- NOTE | 2019-06-02 15:00 | NUR ---
COOLING BLANKET COOLING BLANKET PLACED ON PATIENT, PERSISTENT FEVERS GREATER THAN 101 DESPITE ICE PACKS AND TYLENOL ADMINISTRATION.
[2019-06-02] MEDS: Vitamin B Complex/Vit C/Folic Acid PO SCH (21:59)
[2019-06-02] MEDS: TAMSULOSIN HCL 0.4 MG CAP.ER.24H PO SCH (21:59)
[2019-06-02] MEDS: ENOXAPARIN SODIUM 120 MG/0.8ML SQ SCH (22:01)
[2019-06-02] MEDS: INSULIN GLARGINE 100 UNITS/ML 10 ML VIAL SQ SCH (22:04)
[2019-06-03] VITALS (22 sets, daily range): BP systolic 86–143; BP diastolic 34–62
[2019-06-03] MEDS: INSULIN HUMULIN R 100 UNIT/ML 3ML SQ SCH ×4 (00:14→18:27)
[2019-06-03] MEDS: FENTANYL 1000MCG+NS 100ML 100 ML IV SCH ×2 (01:03→20:13)
[2019-06-03] MEDS: PROPOFOL 1000 MG/100 ML 100 ML IV SCH ×5 (01:47→21:00)
[2019-06-03] MEDS: MEROPENEM 1 GM VIAL IVP SCH ×3 (03:05→18:27)
[2019-06-03 04:57] LABS: HEMATOCRIT 27.3 % (42-54); MEAN CORPUSCULAR HEMOGLOBIN 28.3 pg (27.0-33.0); MEAN CORPUSCULAR HGB CONC 30.4 g/dL (32.0-36.0); MEAN CORPUSCULAR VOLUME 93.2 fL (79-99); PLATELET COUNT (AUTO) 376 K/uL (130-400); RED BLOOD CELL COUNT(AUTO) 2.93 MIL/uL (4.50-6.20); RED CELL DISTRIBUTION WIDTH 14.6 % (11.0-15.5); WHITE BLOOD COUNT (AUTO) 12.2 K/uL (4.8-10.8)
[2019-06-03 05:10] LABS: ALBUMIN 1.2 g/dL (3.5-5.0); BILIRUBIN,TOTAL 0.3 mg/dL (0.2-1.0); CREATININE 5.3 mg/dL (0.5-1.5); MAGNESIUM 2.8 mg/dL (1.80-2.40); PHOSPHORUS 7.2 mg/dL (2.5-4.9); POTASSIUM 5.3 mmol/L (3.5-5.1); TOTAL PROTEIN, SERUM 6.7 g/dL (6.0-8.3)
[2019-06-03 05:13] LABS: BAND NEUTROPHILS % (MANUAL) 5 % (0-2); BASOPHILS % (MANUAL) 2 % (0-2); EOSINOPHILS % (MANUAL) 3 % (1-6); LYMPHOCYTES % (MANUAL) 14 % (22-44); MAN.DIFF COMMENT-IMPRESSION MANUAL DIFFERENTIAL; MONOCYTES % (MANUAL) 7 % (2-9); SEGMENTED NEUTROPHILS % 69 % (40-70)
[2019-06-03] MEDS: INSULIN NPH 100 UNIT/ML 3ML SQ SCH ×2 (06:48→18:26)
[2019-06-03 07:37] LABS: ABG BASE EXCESS -6.9 mmol/L (-2.0-3.0); ABG OXYGEN SATURATION 91.5 % (95.0-99.0); ABG PCO2 40 mmHg (35-48)
[2019-06-03] MEDS: POLYETHYLENE GLYCOL 3350 17 GM POWD.PACK NG SCH (09:00)
[2019-06-03] MEDS ORDERED: FUROSEMIDE 10 MG/ML 4ML VIAL IV SCH (09:30)
[2019-06-03] MEDS: FLUCONAZOLE 200 MG/NS 100 ML 100 ML IV SCH (10:17)
[2019-06-03] MEDS: FAMOTIDINE 20MG TAB 20 MG TAB PO SCH (10:18)
[2019-06-03] MEDS: LINEZOLID 600 MG/ISO-OSM 300 ML IV SCH ×2 (11:53→22:26)
[2019-06-03] MEDS: FUROSEMIDE 10 MG/ML 10ML VIAL IVP SCH (14:00)
[2019-06-03] MEDS: METHYLPREDNISOLONE SOD SUCC 40MG/ML 1ML IVP SCH (22:08)
[2019-06-03] MEDS: Vitamin B Complex/Vit C/Folic Acid PO SCH (22:08)
[2019-06-03] MEDS: TAMSULOSIN HCL 0.4 MG CAP.ER.24H PO SCH (22:08)
[2019-06-03] MEDS: ENOXAPARIN SODIUM 120 MG/0.8ML SQ SCH (22:08)
[2019-06-03] MEDS: INSULIN GLARGINE 100 UNITS/ML 10 ML VIAL SQ SCH (22:23)
[2019-06-04] VITALS (21 sets, daily range): BP systolic 99–160; BP diastolic 41–78
[2019-06-04] MEDS: INSULIN HUMULIN R 100 UNIT/ML 3ML SQ SCH ×2 (00:23→05:48)
[2019-06-04] MEDS: FUROSEMIDE 10 MG/ML 10ML VIAL IVP SCH ×2 (00:51→14:00)
[2019-06-04] MEDS: PROPOFOL 1000 MG/100 ML 100 ML IV SCH ×6 (00:52→21:21)
[2019-06-04] MEDS: MEROPENEM 1 GM VIAL IVP SCH ×3 (02:22→18:08)
--- NOTE | 2019-06-04 05:19 | NUR ---
Jenni Bermudez [employer] MACHINE called for patient converted to A FIB. Patient O2 desaturated and heart rate increased to 130 at 0415. Staff performed suctioning and removed copious amount of thick mucus from ETT. Patient increased O2 sats and decreased heart rate but converted to A fib. [employer] MACHINE ordered NS bolus.
[2019-06-04 05:49] LABS: BASOPHILS % (AUTO) 0.3 % (0.0-5.0); EOSINOPHILS % (AUTO) 0.4 % (0.0-8.0); HEMATOCRIT 29.2 % (42-54); LYMPHOCYTES % (AUTO) 5.7 % (21.0-51.0); MEAN CORPUSCULAR HGB CONC 30.5 g/dL (32.0-36.0); MEAN CORPUSCULAR VOLUME 91.8 fL (79-99); MONOCYTES % (AUTO) 1.6 % (3.0-13.0); NEUTROPHILS % (AUTO) 91.1 % (40.0-77.0); PLATELET COUNT (AUTO) 410 K/uL (130-400); RED BLOOD CELL COUNT(AUTO) 3.18 MIL/uL (4.50-6.20); RED CELL DISTRIBUTION WIDTH 14.4 % (11.0-15.5); WHITE BLOOD COUNT (AUTO) 9.3 K/uL (4.8-10.8)
[2019-06-04 06:20] LABS: ALBUMIN 1.3 g/dL (3.5-5.0); BILIRUBIN,DIRECT 0.2 mg/dL (0.0-0.3); BILIRUBIN,TOTAL 0.4 mg/dL (0.2-1.0); CREATININE 5.5 mg/dL (0.5-1.5); MAGNESIUM 2.9 mg/dL (1.80-2.40); PHOSPHORUS 8.3 mg/dL (2.5-4.9); TOTAL PROTEIN, SERUM 7.3 g/dL (6.0-8.3)
[2019-06-04 06:25] LABS: POTASSIUM 6.1 mmol/L (3.5-5.1)
[2019-06-04] MEDS ORDERED: SODIUM POLYSTYRENE SULFONATE 15 GM/60 ML ML RC SCH (06:34)
[2019-06-04] MEDS ORDERED: SODIUM POLYSTYRENE SULFONATE 15 GM/60 ML ML ONE (06:36)
[2019-06-04] MEDS: INSULIN NPH 100 UNIT/ML 3ML SQ SCH (06:39)
[2019-06-04] MEDS ORDERED: INSULIN HUMULIN R 100 UNIT/ML 3ML IV SCH (07:08)
[2019-06-04] MEDS ORDERED: SODIUM BICARB 50MEQ 50ML VIAL IV SCH (07:08)
[2019-06-04] MEDS: METHYLPREDNISOLONE SOD SUCC 40MG/ML 1ML IVP SCH ×3 (07:58→21:22)
[2019-06-04] MEDS: POLYETHYLENE GLYCOL 3350 17 GM POWD.PACK NG SCH (07:58)
[2019-06-04] MEDS: FAMOTIDINE 20MG TAB 20 MG TAB PO SCH (07:58)
[2019-06-04 09:01] LABS: ABG BASE EXCESS -6.2 mmol/L (-2.0-3.0); ABG HCO3 18.9 mmol/L (21.0-28.0); ABG OXYGEN SATURATION 99.5 % (95.0-99.0); ABG PCO2 36 mmHg (35-48)
[2019-06-04] MEDS: FLUCONAZOLE 200 MG/NS 100 ML 100 ML IV SCH (09:11)
[2019-06-04] MEDS: FENTANYL 1000MCG+NS 100ML 100 ML IV SCH ×2 (09:23→23:00)
[2019-06-04] MEDS: LINEZOLID 600 MG/ISO-OSM 300 ML IV SCH ×2 (10:32→21:22)
[2019-06-04 11:25] LABS: ABG BASE EXCESS -9.1 mmol/L (-2.0-3.0); ABG HCO3 16.2 mmol/L (21.0-28.0); ABG OXYGEN SATURATION 96.6 % (95.0-99.0); ABG PCO2 33 mmHg (35-48)
[2019-06-04] MEDS: INSULIN REGULAR, HUMAN 3ML 100 UNIT in SODIUM CHLORIDE 0.9% 99 ML IV PRN ×4 (12:15→20:08)
[2019-06-04] MEDS ORDERED: LIDOCAINE HCL 1% 20 ML VIAL INJ SCH (12:45)
[2019-06-04 13:29] LABS: HEMATOCRIT 29.7 % (42-54)
[2019-06-04 13:56] LABS: HEMOGLOBIN A1C 8.1 % (4.0-6.0)
[2019-06-04 13:59] LABS: ALBUMIN 1.2 g/dL (3.5-5.0); CREATININE 5.2 mg/dL (0.5-1.5)
[2019-06-04 14:31] LABS: % IRON SATURATION 23.7 % (30-44)
[2019-06-04] MEDS ORDERED: SODIUM CHLORIDE 0.9% 500ML 500 ML IV ONE (16:56)
[2019-06-04] MEDS: TAMSULOSIN HCL 0.4 MG CAP.ER.24H PO SCH (21:21)
[2019-06-04] MEDS: Vitamin B Complex/Vit C/Folic Acid PO SCH (21:22)
[2019-06-04 22:32] LABS: CREATININE 4.9 mg/dL (0.5-1.5); POTASSIUM 4.8 mmol/L (3.5-5.1)
[2019-06-05] VITALS (22 sets, daily range): BP systolic 122–166; BP diastolic 45–65
[2019-06-05] MEDS: PROPOFOL 1000 MG/100 ML 100 ML IV SCH ×6 (00:58→21:07)
[2019-06-05] MEDS: FUROSEMIDE 10 MG/ML 10ML VIAL IVP SCH ×2 (02:08→12:23)
[2019-06-05] MEDS: MEROPENEM 1 GM VIAL IVP SCH ×3 (02:08→16:11)
[2019-06-05] MEDS: METHYLPREDNISOLONE SOD SUCC 40MG/ML 1ML IVP SCH ×3 (06:21→21:07)
[2019-06-05 06:22] LABS: HEMATOCRIT 26.6 % (42-54); MEAN CORPUSCULAR HEMOGLOBIN 27.8 pg (27.0-33.0); MEAN CORPUSCULAR HGB CONC 30.8 g/dL (32.0-36.0); MEAN CORPUSCULAR VOLUME 90.2 fL (79-99); PLATELET COUNT (AUTO) 439 K/uL (130-400); RED BLOOD CELL COUNT(AUTO) 2.95 MIL/uL (4.50-6.20); RED CELL DISTRIBUTION WIDTH 13.8 % (11.0-15.5); WHITE BLOOD COUNT (AUTO) 11.9 K/uL (4.8-10.8)
[2019-06-05] MEDS: INSULIN REGULAR, HUMAN 3ML 100 UNIT in SODIUM CHLORIDE 0.9% 99 ML IV PRN ×4 (06:25→16:14)
[2019-06-05 06:41] LABS: CREATININE 4.6 mg/dL (0.5-1.5); POTASSIUM 4.6 mmol/L (3.5-5.1)
[2019-06-05] MEDS: POLYETHYLENE GLYCOL 3350 17 GM POWD.PACK NG SCH (07:41)
[2019-06-05] MEDS: FLUCONAZOLE 200 MG/NS 100 ML 100 ML IV SCH (08:21)
[2019-06-05] MEDS: FAMOTIDINE 20MG TAB 20 MG TAB PO SCH (08:21)
[2019-06-05] MEDS: LINEZOLID 600 MG/ISO-OSM 300 ML IV SCH ×2 (08:21→21:08)
[2019-06-05 09:47] LABS: ABG BASE EXCESS -1.9 mmol/L (-2.0-3.0); ABG HCO3 22.9 mmol/L (21.0-28.0); ABG OXYGEN SATURATION 95.1 % (95.0-99.0); ABG PCO2 39 mmHg (35-48)
[2019-06-05] MEDS: FENTANYL 1000MCG+NS 100ML 100 ML IV SCH (12:34)
[2019-06-05] MEDS ORDERED: ENOXAPARIN SODIUM 120 MG/0.8ML SQ SCH (16:00)
--- NOTE | 2019-06-05 19:10 | NUR ---
Dr. Leon at bedside. No changes.
[2019-06-05 20:49] LABS: POTASSIUM 4.5 mmol/L (3.5-5.1)
[2019-06-05] MEDS ORDERED: EPOETIN ALFA 10,000 UNIT/ML VIAL SQ SCH (21:00)
[2019-06-05] MEDS: Vitamin B Complex/Vit C/Folic Acid PO SCH (21:07)
[2019-06-05] MEDS: ENOXAPARIN SODIUM 120 MG/0.8ML SQ SCH (21:07)
[2019-06-05] MEDS: TAMSULOSIN HCL 0.4 MG CAP.ER.24H PO SCH (21:08)
[2019-06-06] VITALS (20 sets, daily range): BP systolic 94–171; BP diastolic 44–71
[2019-06-06] MEDS: PROPOFOL 1000 MG/100 ML 100 ML IV SCH ×6 (01:05→23:53)
[2019-06-06] MEDS: FUROSEMIDE 10 MG/ML 10ML VIAL IVP SCH (01:05)
[2019-06-06] MEDS: MEROPENEM 1 GM VIAL IVP SCH ×3 (02:05→18:30)
[2019-06-06 05:38] LABS: HEMATOCRIT 31.2 % (42-54); MEAN CORPUSCULAR HEMOGLOBIN 27.3 pg (27.0-33.0); MEAN CORPUSCULAR HGB CONC 31.4 g/dL (32.0-36.0); MEAN CORPUSCULAR VOLUME 86.9 fL (79-99); PLATELET COUNT (AUTO) 572 K/uL (130-400); RED BLOOD CELL COUNT(AUTO) 3.59 MIL/uL (4.50-6.20); WHITE BLOOD COUNT (AUTO) 11.2 K/uL (4.8-10.8)
[2019-06-06 06:02] LABS: CREATININE 3.7 mg/dL (0.5-1.5); MAGNESIUM 2.4 mg/dL (1.80-2.40); PHOSPHORUS 9.1 mg/dL (2.5-4.9); POTASSIUM 4.4 mmol/L (3.5-5.1)
[2019-06-06] MEDS: METHYLPREDNISOLONE SOD SUCC 40MG/ML 1ML IVP SCH ×2 (06:16→20:20)
[2019-06-06 08:52] LABS: ABG BASE EXCESS 0.2 mmol/L (-2.0-3.0); ABG HCO3 22.6 mmol/L (21.0-28.0); ABG OXYGEN SATURATION 98.4 % (95.0-99.0); ABG PCO2 31 mmHg (35-48)
[2019-06-06] MEDS: FAMOTIDINE 20MG TAB 20 MG TAB PO SCH (09:13)
[2019-06-06] MEDS: POLYETHYLENE GLYCOL 3350 17 GM POWD.PACK NG SCH (09:14)
[2019-06-06] MEDS: FLUCONAZOLE 200 MG/NS 100 ML 100 ML IV SCH (09:15)
[2019-06-06] MEDS: LINEZOLID 600 MG/ISO-OSM 300 ML IV SCH ×2 (09:15→20:45)
--- NOTE | 2019-06-06 13:30 | NUR ---
RECEIVED PT FROM RM 219 VS STABLE. OFF SEDATION. REPOSITIONED, PLACED BED BACK ON ROTATION MODE. CLEANED PERINEUM AND RECTAL AREA, APPLIED PROTECTIVE CREAMS AND ALLEVYN PADS. PT OPENS EYES TO VOICE AND WAS PLACED ON CPAP MODE. TOLERATING WITH GOOD O2 SAT 99%
[2019-06-06] MEDS: INSULIN REGULAR, HUMAN 3ML 100 UNIT in SODIUM CHLORIDE 0.9% 99 ML IV PRN ×2 (18:47)
[2019-06-06] MEDS: FENTANYL 1000MCG+NS 100ML 100 ML IV SCH ×2 (18:59→23:52)
--- NOTE | 2019-06-06 20:00 | NUR ---
ASSESSMENT PT RESTING IN BE IN SUPINE POSITION, BED PLACED ON ROTATION MODE. PT SEDATED WITH IV FLUIDS INFUSING WITHOUT DIFFICULTY. PT INTUBATED WITH 8FR AND 26CM AT THE LIP. RIGHT NARE NGT WITH NEPRO INFUSING AT 35ML/H. HOB PLACED AT 30 DEGREES.16FR JAIN CATH IN PLACE. LEFT FOOT DRSG C/D/I. COOLING BLANKET IN PLACE WITH RECTAL PROBE INTACT. ASSESSMENT COMPLETED, SEE NURSING ASSESSMENT FLOW SHEET
[2019-06-06] MEDS: Vitamin B Complex/Vit C/Folic Acid PO SCH (20:21)
[2019-06-06] MEDS: TAMSULOSIN HCL 0.4 MG CAP.ER.24H PO SCH (20:22)
[2019-06-06] MEDS: ENOXAPARIN SODIUM 120 MG/0.8ML SQ SCH (20:45)
[2019-06-06] MEDS ORDERED: FUROSEMIDE 10 MG/ML 10ML VIAL IVP SCH (21:00)
--- NOTE | 2019-06-06 21:37 | NUR ---
NSR RHYTHM CHANGED FROM AFIB TO NSR. SEE VITAL SIGNS
[2019-06-07] VITALS (23 sets, daily range): BP systolic 93–172; BP diastolic 50–83
--- NOTE | 2019-06-07 | NUR ---
ASSESSMENT PT RESTING IN BE IN SUPINE POSITION, BED REMAINS ON ROTATION MODE. PT SEDATED WITH IV FLUIDS INFUSING WITHOUT DIFFICULTY. PT INTUBATED WITH 8FR AND 26CM AT THE LIP. RIGHT NARE NGT WITH NEPRO INFUSING AT 35ML/H. HOB REMAINS AT 30 DEGREES. 16FR JAIN CATH PATENT AND INTACT. LEFT FOOT DRSG C/D/I. COOLING BLANKET REMIANS IN PLACE WITH RECTAL PROBE INTACT. ASSESSMENT COMPLETED, SEE NURSING ASSESSMENT FLOW SHEET
[2019-06-07] MEDS: INSULIN REGULAR, HUMAN 3ML 100 UNIT in SODIUM CHLORIDE 0.9% 99 ML IV PRN ×2 (00:12)
[2019-06-07] MEDS: PROPOFOL 1000 MG/100 ML 100 ML IV SCH ×3 (00:15→06:31)
[2019-06-07] MEDS: MEROPENEM 1 GM VIAL IVP SCH ×3 (03:00→18:09)
--- NOTE | 2019-06-07 04:00 | NUR ---
ASSESSMENT PT RESTING IN BE IN SUPINE POSITION, BED ON ROTATION MODE. PT SEDATED WITH IV FLUIDS INFUSING WITHOUT DIFFICULTY. PT INTUBATED WITH 8FR AND 26CM AT THE LIP. RIGHT NARE NGT WITH NEPRO INFUSING AT 35ML/H. HOB AT 30 DEGREES. 16FR JAIN CATH PATENT AND INTACT. LEFT FOOT DRSG C/D/I. COOLING BLANKET IN PLACE WITH RECTAL PROBE INTACT. ASSESSMENT COMPLETED, SEE NURSING ASSESSMENT FLOW SHEET
[2019-06-07 04:36] LABS: BASOPHILS % (AUTO) 0.1 % (0.0-5.0); EOSINOPHILS % (AUTO) 0.1 % (0.0-8.0); LYMPHOCYTES % (AUTO) 8.1 % (21.0-51.0); MEAN CORPUSCULAR HEMOGLOBIN 28.5 pg (27.0-33.0); MEAN CORPUSCULAR HGB CONC 31.8 g/dL (32.0-36.0); MEAN CORPUSCULAR VOLUME 89.7 fL (79-99); MONOCYTES % (AUTO) 5.4 % (3.0-13.0); PLATELET COUNT (AUTO) 583 K/uL (130-400); RED BLOOD CELL COUNT(AUTO) 3.79 MIL/uL (4.50-6.20); RED CELL DISTRIBUTION WIDTH 14.3 % (11.0-15.5); WHITE BLOOD COUNT (AUTO) 9.5 K/uL (4.8-10.8)
[2019-06-07 04:57] LABS: ALBUMIN 1.7 g/dL (3.5-5.0); BILIRUBIN,TOTAL 0.4 mg/dL (0.2-1.0); MAGNESIUM 2.2 mg/dL (1.80-2.40); PHOSPHORUS 7.6 mg/dL (2.5-4.9); POTASSIUM 4.5 mmol/L (3.5-5.1); TOTAL PROTEIN, SERUM 7.4 g/dL (6.0-8.3)
[2019-06-07] MEDS: FENTANYL 1000MCG+NS 100ML 100 ML IV SCH (06:32)
--- NOTE | 2019-06-07 07:39 | NUR ---
STABLE-ON VENT. NO DISTRESS. WILL ATTEMPT TO WEAN SEDATION AND DO CPAP TRIAL TOLERATED
[2019-06-07 08:10] LABS: HEPATITIS Bs ANTIGEN SCREEN P Negative (Negative)
[2019-06-07] MEDS: POLYETHYLENE GLYCOL 3350 17 GM POWD.PACK NG SCH (08:11)
[2019-06-07] MEDS: FAMOTIDINE 20MG TAB 20 MG TAB PO SCH (08:11)
[2019-06-07] MEDS: METHYLPREDNISOLONE SOD SUCC 40MG/ML 1ML IVP SCH (08:11)
[2019-06-07] MEDS: FLUCONAZOLE 200 MG/NS 100 ML 100 ML IV SCH (08:11)
--- NOTE | 2019-06-07 08:55 | NUR ---
DIPRIVAN IS OFF- FENTANYL AT 10ML FOR COMFORT.. CPAP TRIAL HAS BEGUN. PT IS AWAKE AND FOLLOWING COMMANDS-CALM CPAP 14/5 50%
[2019-06-07] MEDS: LINEZOLID 600 MG/ISO-OSM 300 ML IV SCH ×2 (10:48→21:16)
--- NOTE | 2019-06-07 13:46 | NUR ---
RD FOLLOW UP NOTE Pt tolerating Tube Feeding of Nepro 35mls/hr. Propofol discontinued, per EMR. Pending weaning trials. Recommend to continue TF 1-2 days post extubation, as medically feasible. Recommend to monitor Renal function and BG levels. RD to continue to monitor and F/U for continued POC. Addendum: 06/07/19 at [address] RD Amended: Links added.
[2019-06-07] MEDS ORDERED: FUROSEMIDE 10 MG/ML 4ML VIAL ONE ×2 (13:52→13:53)
--- NOTE | 2019-06-07 13:55 | NUR ---
PT EXTUBATED PER DR WALTON ORDERS. PLACED ON BIPAP
--- NOTE | 2019-06-07 14:18 | NUR ---
Placed on AVAPS Mode: VT 8mls/ KG IBW (585mls); RR 12; Fio2 40% Addendum: 06/07/19 at 1429 by JS HANSEN RT Amended: Links added.
[2019-06-07] MEDS ORDERED: FUROSEMIDE 10 MG/ML 4ML VIAL IV SCH (16:00)
[2019-06-07] MEDS: INSULIN HUMULIN R 100 UNIT/ML 3ML SQ SCH (18:08)
[2019-06-07 19:18] LABS: CREATININE 2.6 mg/dL (0.5-1.5); POTASSIUM 5.2 mmol/L (3.5-5.1)
--- NOTE | 2019-06-07 20:00 | NUR ---
ASSESSMENT PT RESTING IN BE IN SUPINE POSITION, BED PLACED ON ROTATION MODE. RIGHT NARE NGT AND CLAMPED. HOB PLACED AT 30 DEGREES.16FR JAIN CATH IN PLACE. LEFT FOOT DRSG C/D/I. ASSESSMENT COMPLETED, SEE NURSING ASSESSMENT FLOW SHEET
[2019-06-07] MEDS: TAMSULOSIN HCL 0.4 MG CAP.ER.24H PO SCH (21:00)
[2019-06-07] MEDS ORDERED: INSULIN GLARGINE 100 UNITS/ML 10 ML VIAL SQ SCH (21:00)
[2019-06-07] MEDS: ENOXAPARIN SODIUM 120 MG/0.8ML SQ SCH (21:16)
[2019-06-07] MEDS: Vitamin B Complex/Vit C/Folic Acid PO SCH (21:16)
[2019-06-08] VITALS (7 sets, daily range): BP systolic 86–193; BP diastolic 49–82
[2019-06-08] MEDS: INSULIN HUMULIN R 100 UNIT/ML 3ML SQ SCH ×2 (00:01→06:00)
[2019-06-08] MEDS ORDERED: HYDRALAZINE HCL 20 MG/ML VIAL ONE (00:26)
[2019-06-08] MEDS ORDERED: HYDRALAZINE HCL 20 MG/ML VIAL IV PRN (00:30)
[2019-06-08 00:35] LABS: ABG BASE EXCESS -0.1 mmol/L (-2.0-3.0); ABG HCO3 23.1 mmol/L (21.0-28.0); ABG OXYGEN SATURATION 74.1 % (95.0-99.0); ABG PCO2 34 mmHg (35-48)
[2019-06-08] MEDS ORDERED: SODIUM CHLORIDE 0.9% 1000ML 1,000 ML IV ONE (01:18)
--- NOTE | 2019-06-08 02:00 | NUR ---
PT STATUS 0020: PT WAS NOTED TO HAVE A CHANGE IN VITAL SIGNS. HR 140'S, SPO2 75%, SBP 180-190. PT DEEP SUCTIONED BY ROX RCatina. SPO2 REMAINED APPROXIMATELY 75%. 0033: ABG COMPLETED 0050: DR WALTON MADE AWARE OF ABG RESULTS. DR WALTON UP-DATED ON PT STATUS, CURRENT DNR ORDERS ON CHART, PT RR 30-40'S, SPO2 75, HR 140'S BP 180-190'S/80'S. DR WALTON REQUESTED WE CALL FAMILY TO VERIFY CODE STATUS. SON KAM AUGUST CALLED, NO ANSWER. AVE STALLWORTH ALSO CALLED AND NO ANSWER. 0100: DR WALTON CALLED AND ORDERS RECEIVED TO "CALL A CODE" AND HAVE E.RChai STROUD INTUBATE PT. 0105: ALBERTINA HS NOTIFIED OF CURRENT EVENTS. 0110: DR WALTON CALLED FOR STATUS UP-DATE. DR DR WALTON INFORMED A CODE CAN NOT BE CALLED PT STILL HAS VITAL SIGNS. 0120: DR DACOSTA CALLED FOR PT STATUS UP-DATE. MADE AWARE OF CURRENT STATUS AND STATED THE PT WAS A DNR AND SHE WOULD NOT INTUBATE A DNR PT. 0132: DR WALTON CALLED WANTING TO KNOW WHY A CODE WAS NOT CALLED AFTER ORDERS WERE GIVEN FOR A CODE TO BE CALLED. I TIRED TO EXPLAIN TO DR WALTON A CODE CAN NOT BE CALLED IF THE PT WAS NOT CODING/DNR. 0140: DR WALTON CALLED AND STATED DR LITTLE WOULD BE IN AND INTUBATE THE PT. 0145: KAM AUGUST (PT'S SON) RETURNED CALL. PT CURRENT STATUS EXPLAINED. DNR STATUS VERIFIED. PT'S SON STATED "HE WANTED HIS DAD KEPT COMFORTABLE." 0155: DR WALTON CALLED AND INFORMED PT'S SON DID NOT WANT HIS FATHER INTUBATED PER PT'S WISHES. ORDERS RECEIVED FOR . COMFORT MEASURES, TO CONTINUE BI-PAP, STOP ALL LABS, START A FENTANYL GTT FOR COMFORT. DNR STATUS VERIFIED. DR WALTON STATED HE WOULD NOTIFY DR LITTLE. SEE VITAL SIGNS.
[2019-06-08] MEDS: FENTANYL 1000MCG+NS 100ML 100 ML IV SCH (02:36)
[2019-06-08] MEDS: MEROPENEM 1 GM VIAL IVP SCH (02:36)
--- NOTE | 2019-06-08 06:45 | NUR ---
VICKIE PADILLA 585, R12,IT 1.0, EPAP 6 Addendum: 06/08/19 at 0813 by ALBERT HOLGUIN RT Amended: Links added.
--- NOTE | 2019-06-08 08:27 | NUR ---
AT PRESENT TIME SON WAS NOTIFIED OF PT
--- NOTE | 2019-06-08 08:44 | NUR ---
AT PRESENT TIME ORGAN DONATION REP ARMANI HAS DECLINED DONATION DUE TO MEDICAL RULE OUT AGE ALL MDS MADE AWARE OF EXPIRATION. PT TO BE SENT TO [place] UNTIL FAMILY MAKES DECISION ON HOME
--- NOTE | 2019-06-08 11:17 | NUR ---
As per Nursing, patient this AM. Addendum: 06/08/19 at 1118 by MAYA SANDOVAL, PT PT Amended: Links added.
== END 2019-06-08 08:07 | disposition expired | DRG 870 ==
LOC: EDH 15:06 → EDHIP 17:32 → 2DH 23:49 → 2BH 05-26 18:24 → DAHIP 05-29 18:55 → 2AH 05-31 12:08 → DAHIP 05-31 12:11 → 2BH 06-01 23:32 → 2CH 06-02 20:17 → DAHIP 06-06 13:09
PROVIDERS: ADMIT Internal Medicine; ATTEND Internal Medicine
PROC: 5A1955Z Respiratory Ventilation, Greater than 96 Consecutive Hours (ICD-10-PCS; principal; 2019-05-27)
PROC: 0BH17EZ Insertion of Endotracheal Airway into Trachea, Via Natural or Artificial Opening (ICD-10-PCS; 2019-05-27)
PROC: 5A09357 Assistance with Respiratory Ventilation, Less than 24 Consecutive Hours, Continuous Positive Airway Pressure (ICD-10-PCS; 2019-05-27)
PROC: 5A09357 Assistance with Respiratory Ventilation, Less than 24 Consecutive Hours, Continuous Positive Airway Pressure (ICD-10-PCS; 2019-06-07)
DX: A41.50 Gram-negative sepsis, unspecified (principal); R65.21 Severe sepsis with septic shock; G93.41 Metabolic encephalopathy; J96.02 Acute respiratory failure with hypercapnia; J96.01 Acute respiratory failure with hypoxia; L03.116 Cellulitis of left lower limb; E44.0 Moderate protein-calorie malnutrition; I69.351 Hemiplegia and hemiparesis following cerebral infarction affecting right dominant side; J44.0 Chronic obstructive pulmonary disease with (acute) lower respiratory infection; J44.1 Chronic obstructive pulmonary disease with (acute) exacerbation; N39.0 Urinary tract infection, site not specified; N17.9 Acute kidney failure, unspecified; E66.2 Morbid (severe) obesity with alveolar hypoventilation; E11.52 Type 2 diabetes mellitus with diabetic peripheral angiopathy with gangrene; E87.1 Hypo-osmolality and hyponatremia; E87.4 Mixed disorder of acid-base balance; I13.0 Hypertensive heart and chronic kidney disease with heart failure and stage 1 through stage 4 chronic kidney disease, or unspecified chronic kidney disease; I82.812 Embolism and thrombosis of superficial veins of left lower extremity; L02.612 Cutaneous abscess of left foot; L03.115 Cellulitis of right lower limb; L97.429 Non-pressure chronic ulcer of left heel and midfoot with unspecified severity; M86.9 Osteomyelitis, unspecified; I82.411 Acute embolism and thrombosis of right femoral vein; B96.20 Unspecified Escherichia coli [E. coli] as the cause of diseases classified elsewhere; J98.4 Other disorders of lung; Z68.35 Body mass index [BMI] 35.0-35.9, adult; B95.2 Enterococcus as the cause of diseases classified elsewhere; D64.9 Anemia, unspecified; E11.22 Type 2 diabetes mellitus with diabetic chronic kidney disease; E11.319 Type 2 diabetes mellitus with unspecified diabetic retinopathy without macular edema; E11.40 Type 2 diabetes mellitus with diabetic neuropathy, unspecified; E11.621 Type 2 diabetes mellitus with foot ulcer; E11.622 Type 2 diabetes mellitus with other skin ulcer; E11.649 Type 2 diabetes mellitus with hypoglycemia without coma; E11.65 Type 2 diabetes mellitus with hyperglycemia; E11.69 Type 2 diabetes mellitus with other specified complication; E78.5 Hyperlipidemia, unspecified; E83.42 Hypomagnesemia; E87.5 Hyperkalemia; F32.9 Major depressive disorder, single episode, unspecified; G25.0 Essential tremor; I25.10 Atherosclerotic heart disease of native coronary artery without angina pectoris; I50.9 Heart failure, unspecified; Z66 Do not resuscitate; I99.8 Other disorder of circulatory system; L97.529 Non-pressure chronic ulcer of other part of left foot with unspecified severity; N18.9 Chronic kidney disease, unspecified; N40.0 Benign prostatic hyperplasia without lower urinary tract symptoms; Z72.0 Tobacco use; Z74.01 Bed confinement status; Z79.4 Long term (current) use of insulin; Z89.511 Acquired absence of right leg below knee; Z03.818 Encounter for observation for suspected exposure to other biological agents ruled out; Z83.3 Family history of diabetes mellitus
CPT/HCPCS: 31500; 36415; 36600; 71045; 73630; 73718; 76770; 80048; 80053; 80061; 80076; 80202; 81001; 82040; 82435; 82565; 82728; 82803; 82947; 82948; 83036; 83540; 83550; 83605; 83615; 83735; 83880; 84100; 84132; 84145; 84295; 84443; 84484; 84520; 84550; 85014; 85018; 85025; 85027; 85378; 85651; 86140; 86701; 86704; 86706; 87040; 87070; 87076; 87077; 87088; 87186; 87340; 87390; 87520; 87633; 87635; 87804; 93005; 93306; 93926; 93970; 93971; 94002; 94003; 94640; 94660; 94664; 94667; 99291; A4344; G0378; J0330; J0360; J0692; J0885; J1450; J1650; J1815; J1940; J2020; J2060; J2185; J2250; J2543; J2704; J2920; J3010; J3370; J3475; J3490; J7030; J7040; J7050